=== PATIENT | male | born 1955 | race Caucasian/White ===

== ENCOUNTER 2023-12-26 22:37 | Emergency (ER) | payer OTHER ==
[2023-12-26 22:43] VITALS: RESP 16; BMI 29.2
[2023-12-26 22:54] VITALS: BP 150/80; PULSE 73; TEMP 97.7
[2023-12-27 00:54] LABS: BASO % 1.7 % (0-2.0); EOS % 3.1 % (0-4.5); HEMATOCRIT 37.7 % (35.4-49); HEMOGLOBIN 12.6 GM/dL (11.7-16.9); LYMPH % 22.2 % (8-40); MCH 24.2 pg (25.7-33.7); MCHC 33.3 g/dl (32.0-35.9); MEAN CELL VOLUME 72.8 fl (80-96); MONO % 9.9 % (3.8-10.2); NEUT % 63.1 % (42.8-82.8); PLATELET COUNT 227 10^3/uL (134-434); RBC 5.18 M/mm3 (4.00-5.60); RDW 15.2 % (11.9-15.9); WHITE BLOOD COUNT 9.2 K/mm3 (4.0-10.0)
[2023-12-27 01:00] LABS: INR 0.95 (0.83-1.09); PROTHROMBIN TIME (PATIENT) 10.7 SEC (9.7-13.0)
[2023-12-27 01:13] LABS: CALCIUM 9.1 mg/dL (8.5-10.1)
[2023-12-27 01:14] LABS: ALBUMIN 3.9 g/dl (3.4-5.0); BLOOD UREA NITROGEN 28.9 mg/dL (7-18)
[2023-12-27 01:17] LABS: CREATININE 1.3 mg/dL (0.55-1.3)
[2023-12-27 01:19] LABS: BILIRUBIN,TOTAL 0.3 mg/dL (0.2-1)
== END 2023-12-27 01:39 | disposition home or self-care (01) ==
LOC: FER 22:37
DX: H11.32 Conjunctival hemorrhage, left eye (principal)
CPT/HCPCS: 36415; 70450-TC; 70480-TC; 80053; 85025; 85610; 93005; 99285-25